=== PATIENT | female | born 1965 | race Caucasian/White ===

== ENCOUNTER 2019-05-01 15:47 | Inpatient (IN) ==
[2019-05-01] MEDS ORDERED: ZOFRAN IV PRN (17:34)
[2019-05-01] MEDS: LEVAQUIN 750 MG/D5W 750 MG/150 ML IVPB IV SCH (17:54)
[2019-05-01] MEDS: FLAGYL 500 MG/NS 500 MG/100 ML IVPB IV SCH (17:54)
[2019-05-01 18:02] LABS: HEMATOCRIT 46.2 % (37.0-47.0); HEMOGLOBIN 14.8 g/dL (12.0-16.0); MCH 30.5 PG (27-31); MCV 95.1 FL (81-99); MPV 10.4 FL (7.4-10.4); RBC 4.86 XMIL (4.2-5.4); RDW 13.9 % (11.5-14.5); WBC 15.82 X1000 (4.8-10.8)
[2019-05-01 18:14] LABS: ALB/GLOB RATIO 1.5; ALBUMIN 4.3 g/dL (3.5-5.0); POTASSIUM 4.4 mmol/L (3.5-5.1); TOTAL BILIRUBIN 0.36 mg/dL (0.20-1.00); TOTAL PROTEIN 7.1 g/dL (6.3-8.3)
[2019-05-01] MEDS: LR 1,000 ML IV SCH (18:35)
[2019-05-01] MEDS: MORPHINE IV PRN (23:53)
[2019-05-02] MEDS: FLAGYL 500 MG/NS 500 MG/100 ML IVPB IV SCH ×3 (01:31→17:19)
[2019-05-02] MEDS: LR 1,000 ML IV SCH ×2 (04:17→21:58)
[2019-05-02] MEDS: MORPHINE IV PRN ×2 (04:17→21:58)
[2019-05-02] MEDS ORDERED: NEOSTIGMINE ONE (10:24)
[2019-05-02] MEDS ORDERED: ZEMURON ONE (10:27)
[2019-05-02] MEDS ORDERED: QUELICIN (DOSE) ONE (10:27)
[2019-05-02] MEDS ORDERED: XYLOCAINE-MPF 2% ONE (10:27)
[2019-05-02] MEDS ORDERED: ROBINUL ONE (10:27)
[2019-05-02] MEDS ORDERED: FENTANYL ONE (10:28)
[2019-05-02] MEDS ORDERED: DIPRIVAN 1% ONE (10:28)
[2019-05-02] MEDS ORDERED: SODIUM CHLORIDE 0.9% ONE (11:14)
[2019-05-02] MEDS ORDERED: SENSORCAINE 0.25%/EPI 1:200,000 ONE (11:14)
[2019-05-02] MEDS ORDERED: LR 1,000 ML ONE (11:14)
[2019-05-02] MEDS ORDERED: DECADRON ONE (11:33)
[2019-05-02] MEDS ORDERED: ZOFRAN ONE (11:33)
[2019-05-02] MEDS ORDERED: SODIUM CHLORIDE 0.9% 10 ML ONE (12:22)
[2019-05-02] MEDS ORDERED: NEO-SYNEPHRINE ONE (12:22)
--- NOTE | 2019-05-02 12:27 | GENERAL SURGERY PROGRESS NOTE ---
DATE: 05/02/2019 SUBJECTIVE: The patient seems to be doing okay, although she is hurting a little bit. OBJECTIVE: Vital Signs: The patient is currently afebrile. Her vital signs are stable. General: No acute distress. HEENT: Normocephalic, atraumatic. Pupils equal, round, reactive to light. Mucous membranes moist. Oropharynx benign. Neck: Supple. Trachea midline. Cardiovascular: Regular rate and rhythm. Lungs: Grossly clear. Abdomen: Soft, tender to palpation. Epigastric and right upper quadrant pain. No peritoneal signs. Extremities: Moves all extremities. Neurologic: Grossly intact. Skin: No signs of jaundice. Vascular: All extremities perfused. LABORATORY DATA: White blood cell count is 15, hematocrit is normal, platelet count is normal. Bilirubin, AST, ALT, and alkaline phosphatase are all normal. Lipase is slightly elevated at 78. ASSESSMENT AND PLAN: A 53-year-old female with cholecystitis. Cholecystitis. At this time, will plan on surgical intervention. I discussed with her, the risks, benefits, and alternatives of the procedure. Risks including, but not limited to, bleeding, infection, risk of anesthesia, risk of common bile duct injury and bile leak, risk of injuring other organs were discussed. Will plan on surgical intervention today. Will get consent. She is on scheduled antibiotics. cc: Kameron Washington MD
[2019-05-02] MEDS ORDERED: TORADOL ONE (12:34)
[2019-05-02] MEDS ORDERED: PHENERGAN ONE (13:15)
[2019-05-02] MEDS ORDERED: DILAUDID ONE (13:15)
[2019-05-02] MEDS: LEVAQUIN 750 MG/D5W 750 MG/150 ML IVPB IV SCH (18:25)
--- NOTE | 2019-05-02 20:08 | OPERATIVE NOTE ---
PROCEDURE DATE: 05/02/2019 PREOPERATIVE DIAGNOSIS: Cholecystitis. POSTOPERATIVE DIAGNOSIS: Cholecystitis. PROCEDURE: Laparoscopic cholecystectomy. SURGEON: Kameron Washington MD. AUTOMATIC GLOVE FORMER: None. ANESTHESIA: General endotracheal. FINDINGS: Distended, large, thickened gallbladder, some purulence in the abdomen. COMPLICATIONS: None at time of dictation. ESTIMATED BLOOD LOSS: 50 mL. SPECIMENS REMOVED: Gallbladder. Drains: A 19-Swazi drain. BRIEF HISTORY: A 53-year-old female presenting with a several-day history of abdominal pain. She had an ultrasound that showed a distended gallbladder. It was felt to be cholecystitis. She was admitted from my office and started on IV antibiotics. We elected to take her to the operating room after 12 hours of antibiotics. The risks, benefits, alternatives of the procedure were discussed risks including but not limited to bleeding, infection, risk of anesthesia risk of common bile duct injury and bile leak, and risk of injury to other organs. All questions answered. DESCRIPTION OF PROCEDURE: After informed consent was obtained, the patient brought to the operative theatre, transferred operatively supine position. General endotracheal anesthesia was then performed without complication. A formal time-out was then performed confirming patient, date, procedure. All in agreement. At that time, attention was given to the abdomen. We were able to place our first trocar using the Optiview technique in the infraumbilical incision, connected it to insufflation and pneumoperitoneum was achieved. Under direct visualization, we placed 3 more trocars, all 5 mm, 1 subxiphoid, 2 in the right upper quadrant. Using these, the abdomen was investigated. There was some purulent fluid noted in the abdomen. The gallbladder itself was very distended and thickened. We had to aspirate some of the fluid to be able to get a hold of it. We were able to retract it cephalad. With a very tedious dissection able dissect out the cystic duct and cystic artery. We did see the common bile duct. We were able to stay above it and go through the cystic duct and achieve the critical view of safety. We doubly clipped and ligated the cystic duct and cystic artery and dissected the gallbladder off the gallbladder fossa. Given how inflamed and the purulence, we elected to leave a drain from most lateral trocar site. We placed the gallbladder into the EndoCatch, secured the drain in its place and into the gallbladder fossa. We then removed insufflation and removed all the trocars. We had to make the lower midline incision significantly larger to accommodate the large gallbladder. We were able to remove it intact. We irrigated out the abdomen. We then closed the fascia in the infraumbilical incision with 0 Vicryl in multiple stitches. There was decent closure. The fascia was very tenuous. We were able to close it. We closed all skin incisions with 4-0 Monocryl. The patient tolerated the procedure well and was transferred back to recovery room. We will watch her over night at least. cc: Kameron Washington MD
[2019-05-02] MEDS: PERIDEX MT SCH (21:58)
[2019-05-03] MEDS: FLAGYL 500 MG/NS 500 MG/100 ML IVPB IV SCH ×5 (00:52→17:15)
[2019-05-03] MEDS: MORPHINE IV PRN ×3 (08:45→21:20)
[2019-05-03] MEDS: PERIDEX MT SCH ×2 (08:48→21:21)
[2019-05-03] MEDS: LR 1,000 ML IV SCH ×2 (08:54→17:58)
--- NOTE | 2019-05-03 15:53 | GENERAL SURGERY PROGRESS NOTE ---
DATE: 05/03/2019 SUBJECTIVE: Patient seems to be doing okay. She is feeling a little bit better. She is sore. OBJECTIVE: Vital Signs: Patient is currently afebrile. Her vital signs are stable. General: No acute distress. Cardiovascular: Regular rate and rhythm. Lungs: Grossly clear. Abdomen: Soft and appropriately tender. EMANUEL drain in place with serosanguineous output. ASSESSMENT AND PLAN: A 53-year-old female postoperative day 1 from laparoscopic cholecystectomy. Postoperative state. At this time given the amount of contamination with purulent fluid that she had in her abdomen, I would like to keep her on IV antibiotics for another day at least. We will keep Carlo-Messer drain in place. Clinically, she is doing okay, and we will recheck a CBC in the morning. If she seems to be doing okay, may consider transition over to p.o. antibiotics and discharging her tomorrow. cc: Kameron Washington MD
[2019-05-03] MEDS: LEVAQUIN 750 MG/D5W 750 MG/150 ML IVPB IV SCH (17:14)
[2019-05-04] MEDS: FLAGYL 500 MG/NS 500 MG/100 ML IVPB IV SCH ×2 (01:54→09:15)
[2019-05-04] MEDS: MORPHINE IV PRN ×3 (01:56→09:22)
[2019-05-04 07:17] LABS: BASO# 0.02 X1000 (0.0-0.2); BASO% 0.3 % (0.0-0.8); EOS# 0.02 X1000 (0.0-0.7); EOS% 0.3 % (0.0-10.0); HEMATOCRIT 32.3 % (37.0-47.0); LYMPH# 1.98 X1000 (1.2-3.4); LYMPH% 27.7 % (20.5-51.1); MCH 30.8 PG (27-31); MCV 99.4 FL (81-99); MONO# 0.38 X1000 (0.11-0.59); MONO% 5.3 % (1.7-9.3); MPV 10.4 FL (7.4-10.4); NEUT# 4.76 X1000 (1.4-6.5); NEUT% 66.4 % (42.2-75.2); PLT 171 X1000 (130-400); RBC 3.25 XMIL (4.2-5.4); RDW 14.3 % (11.5-14.5); WBC 7.16 X1000 (4.8-10.8)
[2019-05-04] MEDS: PERIDEX MT SCH (09:15)
[2019-05-04 11:49] VITALS: BP 99/61
[2019-05-04] MEDS ORDERED: FLU VACCINE IM ONE (13:15)
[2019-05-04] MEDS ORDERED: PNEUMOVAX 23 IM ONE (13:16)
--- NOTE | 2019-05-05 03:51 | GENERAL SURGERY PROGRESS NOTE ---
DATE: 05/04/2019 SUBJECTIVE: The patient is doing well. She denies significant pain, nausea, or vomiting. OBJECTIVE: Vital signs: She is afebrile. Vital signs are stable. General: She is awake, alert, oriented x3. No acute distress. Gastrointestinal: Soft, nondistended, appropriately tender. Incisional dressings clean and dry. The EMANUEL drain is bloody. No bile. LABORATORY: CBC was reviewed and unremarkable. ASSESSMENT AND PLAN: A 53-year-old female status post laparoscopic cholecystectomy. She is ready for discharge with her drain and antibiotics per Dr. Washington's instructions. She will follow up with him next week. cc: MD Kameron Murphy MD
--- NOTE | 2019-05-07 18:23 | DISCHARGE SUMMARY ---
ADMISSION DATE: 05/01/2019 DISCHARGE DATE: 05/04/2019 ADMITTING DIAGNOSIS: Cholecystitis. DISCHARGE DIAGNOSIS: Status post laparoscopic cholecystectomy. CONSULTATIONS: None. PROCEDURE: On 05/02/2019, patient underwent a laparoscopic cholecystectomy. BRIEF HISTORY AND COURSE OF STAY: A 53-year-old female who was initially admitted on 05/01/2019, from my office for cholecystitis. She was admitted and started on IV antibiotics, given at least 24 hours of antibiotics, and underwent a laparoscopic cholecystectomy. Her postoperative course was not complicated. We did keep her another night because she had purulent fluid in her abdomen and she had a difficult cholecystectomy, wanted to keep her on additional antibiotics. On the day of discharge, she was up and ambulating, tolerating a diet. Arrangements were made. She was afebrile. DISCHARGE CONDITION: Stable. DISPOSITION: Home. FOLLOWUP: Patient was told to follow up with Dr. Washington in 1 week. cc: Kameron Washington MD
== END 2019-05-04 13:35 | disposition home or self-care (01) | DRG 419 ==
LOC: DIRADM 15:47 → 4N 16:15
PROVIDERS: ADMIT Surgery; ATTEND Surgery

== ENCOUNTER 2019-06-30 12:48 | Inpatient (IN) ==
[2019-06-30] MEDS ORDERED: NS 1,000 ML IV ONE (13:10)
[2019-06-30] MEDS ORDERED: ZOFRAN IV ONE ×2 (13:11→13:29)
[2019-06-30] MEDS ORDERED: DILAUDID IV ONE (13:29)
[2019-06-30 15:30] LABS: BASO# 0.01 X1000 (0.0-0.2); BASO% 0.1 % (0.0-0.8); HEMATOCRIT 50.9 % (37.0-47.0); HEMOGLOBIN 16.3 g/dL (12.0-16.0); IMM GRAN# 0.04 X1000 (0.0-0.04); IMM GRAN% 0.2 % (0.0-0.5); LYMPH# 0.72 X1000 (1.2-3.4); LYMPH% 4.1 % (20.5-51.1); MCH 30.1 PG (27-31); MCV 94.1 FL (81-99); MONO# 0.68 X1000 (0.11-0.59); MONO% 3.8 % (1.7-9.3); MPV 10.4 FL (7.4-10.4); NEUT# 16.24 X1000 (1.4-6.5); NEUT% 91.8 % (42.2-75.2); PLT 246 X1000 (130-400); RBC 5.41 XMIL (4.2-5.4); RDW 14.1 % (11.5-14.5); WBC 17.69 X1000 (4.8-10.8)
[2019-06-30 15:49] LABS: ESTIMATED GFR > 60
[2019-06-30 15:52] LABS: AGAP 13; ALB/GLOB RATIO 1.2; ALBUMIN 4.2 g/dL (3.5-5.0); ALKALINE PHOSPHATASE 108 U/L (32-104); AMYLASE 1479 U/L (20-200); BUN 19 mg/dL (8-22); CALCIUM 9.7 mg/dL (8.8-10.2); CHLORIDE 98 mmol/L (98-107); COSMO 277; CREATININE 0.8 mg/dL (0.5-0.9); GLUCOSE 107 mg/dL (70-104); GOT 15 U/L (10-30); GPT 12 U/L (10-36); SODIUM 137 mmol/L (136-145); TCO2 26 mmol/L (25-35); TOTAL BILIRUBIN 0.65 mg/dL (0.20-1.00); TOTAL PROTEIN 7.8 g/dL (6.3-8.3)
[2019-06-30 15:57] LABS: LIPASE 1239 U/L (13-60)
--- NOTE | 2019-06-30 16:41 | Diag Imaging Result Doc PS360 ---
EXAM: CT ABD/PELVIS W/IV CONT ONLY 06/30/2019 HISTORY: diffuse pain, hx pancreatitis s/p patricia'x TECHNIQUE: This exam was performed using automated exposure control, adjustment of mA or kV according to patient size, and/or use of iterative reconstruction technique. COMMENT: There are no previous studies. There is platelike atelectasis versus fibrosis in the left lower lobe. The aorta is not distended. The mesenteric and renal arteries are patent. There are some atherosclerotic calcifications. There has been previous cholecystectomy. The common bile duct is markedly distended measuring over 17 mm proximally. In the pancreatic head it measures almost 10 mm. There is marked inflammatory change around the body and head of the pancreas. There are numerous punctate calcifications in the pancreas consistent with chronic pancreatitis. There is no evidence of abscess or necrosis. The adrenal glands and spleen are not enlarged. The portal vein is patent. There is some slight intrahepatic biliary dilatation. Otherwise the liver is unremarkable. There is some fullness of the left renal collecting system and there are some cortical scars consistent with chronic pyelonephritis. There is no evidence of ureterolithiasis. There is some gas in the urinary bladder. This may be due to previous instrumentation. There is no evidence of bowel obstruction. No significant adenopathy is present. Pelvis: There is diverticulosis in the sigmoid colon without evidence of active diverticulitis. There is free fluid in the cul-de-sac. There our no adnexal masses. The appendix is normal in appearance. The regional skeleton appears to be intact. IMPRESSION: 1. Acute on chronic pancreatitis. Dilatation the common bile duct of uncertain etiology. The possibility of a distal common bile duct stone or recently passed stone cannot be excluded. Ascites. 2. Changes consistent with chronic pyelonephritis on the left. The possibility of active urinary tract infection cannot be excluded. Electronically signed by Bryant Edwards 06/30/2019 4:39 PM
--- NOTE | 2019-06-30 16:49 | Diag Imaging Result Doc PS360 ---
EXAM: CHEST-1 VIEW 06/30/2019 HISTORY: sepsis TECHNIQUE: AP chest COMMENT: There is a linear opacity paralleling the chest wall laterally on the left which is probably related to fibrosis although no previous studies are available for comparison. There is an old fracture of the lateral left sixth rib. The heart size and pulmonary vascularity are within normal limits. IMPRESSION: Atelectasis versus fibrosis in the left lower lobe laterally. Electronically signed by Bryant Edwards 06/30/2019 4:47 PM
[2019-06-30 16:57] LABS: AGAP 13; ALB/GLOB RATIO 1.5; ALBUMIN 4.4 g/dL (3.5-5.0); ALKALINE PHOSPHATASE 110 U/L (32-104); BUN 19 mg/dL (8-22); CALCIUM 9.6 mg/dL (8.8-10.2); CHLORIDE 99 mmol/L (98-107); CK PROFILE 70 U/L (24-173); COSMO 278; CREATININE 0.8 mg/dL (0.5-0.9); ESTIMATED GFR > 60; GLUCOSE 108 mg/dL (70-104); GOT 13 U/L (10-30); GPT 10 U/L (10-36); SODIUM 138 mmol/L (136-145); TCO2 26 mmol/L (25-35); TOTAL BILIRUBIN 0.64 mg/dL (0.20-1.00); TOTAL PROTEIN 7.3 g/dL (6.3-8.3)
[2019-06-30 17:12] LABS: URINE SOURCE CLEAN CATCH
[2019-06-30 17:20] LABS: BILIRUBIN URINE NEGATIVE (NEGATIVE); BLOOD URINE SMALL (NEGATIVE); COLOR YELLOW; GLUCOSE URINE 100 mg/dL (NEGATIVE); KETONE URINE TRACE mg/dL (NEGATIVE); LEUKOCYTES URINE LARGE (NEGATIVE); NITRITE URINE NEGATIVE (NEGATIVE); PH URINE 6.5; PROTEIN URINE 70 mg/dL (NEGATIVE); TURBIDITY URINE HAZY (CLEAR); UROBILINOGEN URINE NORMAL (NORMAL)
[2019-06-30 17:22] LABS: UR EPITHELIAL CELLS <10 /HPF (<10); URINE BACTERIA 4+ /HPF; URINE RBC <10 /HPF (<10); URINE WBC TNTC /HPF (<10)
[2019-06-30] MEDS ORDERED: ZOFRAN IV PRN (17:41)
[2019-06-30 17:44] LABS: SP GRAVITY URINE 1.015
[2019-06-30] MEDS ORDERED: LR 1,000 ML IV ONE (17:46)
--- NOTE | 2019-06-30 18:04 | PROVIDER DOCUMENTATION ---
This chart was entered by Vickie Baldwin Scribe, acting as scribe for Castillo Valente MD. HPI-Abdominal Pain/GI Problem - General Chief Complaint: Abdominal Pain Stated Complaint: ABDOMINAL PAIN Time Seen by Provider: 06/30/19 13:25 Source: patient Allergies/Adverse Reactions: Patient Allergies Allergy/AdvReac Type Severity Reaction Status Date / Time Penicillins Allergy Intermediate SWELLING Verified 06/30/19 17:39 - History of Present Illness-ABD Nature of Presenting Problems: 53 y/o female presents to the ED with complaint of abdominal pain and vomiting since last night. The patient denies change in bowel movement and hematochezia. Records show h/o cholecystectomy in April 2019 with pancreatitis at that time. Abdominal Pain Onset Location: reports: epigastric Onset/Duration: reports: last night Timing: reports: still present Associated Symptoms: reports: vomiting Dark Stools Present?: reports: none noticed Rectal Bleeding: reports: none Rectal Pain: reports: none Emesis Description: denies: red blood, coffee grounds, blood-streaked Recently seen or treated by another doctor?: No Review of Systems - Adult - REVIEW OF SYSTEMS - ADULT Constitutional: denies: chills, fever, weight gain, weight loss Eyes: reports: no symptoms reported Ears, Nose, Mouth & Throat: reports: no symptoms reported Cardiovascular: reports: no symptoms reported Respiratory: reports: no symptoms reported Gastrointestinal: reports: abdominal pain (epigastric), vomiting. denies: constipation, diarrhea Genitourinary: denies: dysuria, hematuria, urgency Musculoskeletal: reports: no symptoms reported Integumentary: reports: no symptoms reported Neurological: reports: no symptoms reported Psychiatric: reports: no symptoms reported Endocrine: reports: no symptoms reported Hematologic/Lymphatic: reports: no symptoms reported Allergic/Immunologic: reports: no symptoms reported All Other Systems: Reviewed and Negative Past History - Adult - PAST MEDICAL HISTORY-ADULT Review of Records: reports: Old Records Reviewed, Nursing Assessment Review, Medications Reviewed - IMMUNIZATION STATUS Childhood Immunizations: See Nurse Assessment Flu Vaccine: See Nurse Assessment - SOCIAL HISTORY Smoking: cigarettes Provider spent 3-5 mins advising pt. on dangers of tobacco.: Discussed manners to quit use, and f/u contacts for add'l counseling. Physical Exam-General - PHYSICAL EXAM-ADULT Initial Vital Signs Reviewed: Yes - CONSTITUTIONAL General Appearance: alert, moderate distress - RESPIRATORY Respiratory: lungs clear, normal breath sounds. negative: rales, rhonchi, wheezing - CARDIOVASCULAR Cardiovascular: regular rate, rhythm, no gallop, no murmur - GASTROINTESTINAL (ABDOMEN) Abdominal Exam: normal bowel sounds, guarding, tenderness (RUQ and LUQ). negative: rigid - SKIN Integumentary: normal color, warm/dry - NEUROLOGIC Neurologic: grossly normal Progress - PLAN OF CARE/RESULTS Progress/Plan/Lab Results: Vital Signs - 8 hr 06/30/19 12:51 Temperature 98.4 F Pulse Rate 120 H Respiratory Rate 18 Blood Pressure 144/96 O2 Sat by Pulse Oximetry 98 Orders Category Date Time Status Saline Loc DIRECTED Care 06/30/19 12:58 Active NPO Diet 06/30/19 12:58 Active AMYLASE [CHEM] Stat Lab 06/30/19 12:58 Uncollected CBC WITH ELECTRONIC DIFF [HEME] Stat Lab 06/30/19 12:58 Uncollected COMPREHENSIVE METABOLIC PANEL [CHEM] Stat Lab 06/30/19 12:58 Uncollected LIPASE [CHEM] Stat Lab 06/30/19 12:58 Uncollected URINALYSIS W/POSS RFLX CULT [URINALYSIS] Stat Lab 06/30/19 12:58 Uncollected 0.9% Sodium Chloride Inj [Ns] 1,000 ml Med 06/30/19 13:10 Active IV 999 mls/hr Ondansetron [Zofran] Med 06/30/19 13:11 Discontinued 4 mg IV NOW ONE Result Diagrams: 06/30/19 15:10 06/30/19 15:10 - CT/MRI 1 CT Study: Abdomen, Pelvis Impression: Abnormal (EXAM: CT ABD/PELVIS W/IV CONT ONLY 06/30/2019 HISTORY: diffuse pain, hx pancreatitis s/p patricia'x TECHNIQUE: This exam was performed using automated exposure control, adjustment of mA or kV according to patient size, and/or use of iterative reconstruction technique. COMMENT: There are no previous studies. There is platelike atelectasis versus fibrosis in the left lower lobe. The aorta is not distended. The mesenteric and renal arteries are patent. There are some atherosclerotic calcifications. There has been previous cholecystectomy. The common bile duct is markedly distended measuring over 17 mm proximally. In the pancreatic head it measures almost 10 mm. There is marked inflammatory change around the body and head of the pancreas. There are numerous punctate calcifications in the pancreas consistent with chronic pancreatitis. There is no evidence of abscess or necrosis. The adrenal glands and spleen are not enlarged. The portal vein is patent. There is some slight intrahepatic biliary dilatation. Otherwise the liver is unremarkable. There is some fullness of the left renal collecting system and there are some cortical scars consistent with chronic pyelonephritis. There is no evidence of ureterolithiasis. There is some gas in the urinary bladder. This may be due to previous instrumentation. There is no evidence of bowel obstruction. No significant adenopathy is present. Pelvis: There is diverticulosis in the sigmoid colon without evidence of active diverticulitis. There is free fluid in the cul-de-sac. There our no adnexal masses. The appendix is normal in appearance. The regional skeleton appears to be intact. IMPRESSION: 1. Acute on chronic pancreatitis. Dilatation the common bile duct of uncertain etiology. The possibility of a distal common bile duct stone or recently passed stone cannot be excluded. Ascites. 2. Changes consistent with chronic pyelonephritis on the left. The possibility of active urinary tract infection cannot be excluded. Electronically signed by Bryant Edwards 06/30/2019 4:39 PM) - CONSULTS/PCP/HOSPITALIST Notification #1 *Consult/PCP/Hospitalist*: Dr. Gomes Time Discussed: 17:16 Reason/Comments: common bile duct dilatation, pancreatitis, Consult Disposition: other (admit through hospitalist, no stat surgery required at this time.) #2 Consult: Juancarlos Nolasco Time Discussed: 17:20 Reason/Comments: common bile duct dilatation, pancreatitis, UTI Consult Disposition: Admit Departure - Departure Date of Disposition Decision: 06/30/19 Time of Disposition Decision: 17:21 DIAGNOSIS: Acute pancreatitis Disposition: ADMITTED INPATIENT 09 Certified Medical Emergency: Emergent Condition: Stable Additional Instructions: ED Follow Up Instructions: You have been treated by a care provider in the Emergency Department. These instructions are being provided to you so you can have an understanding of how to care for yourself upon discharge. Upon discharge from the Emergency De partment, you are responsible for making arrangements for follow-up care by a physician of your choice. Take all prescribed medications as directed. Return to the Emergency Department immediately for any new or worsening symptoms. You may call the Physician Referral phone number at [phone] to obtain a list of Physicians who are taking new patients. Referrals and Follow-Ups: None,PCP [Primary Care Provider] - - Critical Care Note This patient required my direct & personal management of CC.: No Attestation - Physician/ MATHIEU Attestation Patient care was provided by Advanced Practice Provider:: No The physician spent face to face time with patient:: Yes Advanced Practice Provider documentation review:: Supervising physician onsite and consulted in the evaluation and care of this patient. The physician did have a face to face encounter with the patient. This chart was documented by the indicated scribe, (Vickie Baldwin, David) and accurately reflects the services I performed and decisions made by me, Castillo Valente MD, as attested by the provider's signature.
[2019-06-30] MEDS: PROTONIX IV SCH (18:50)
[2019-06-30] MEDS: MERREM 1 GM in NS 50 ML IV SCH (18:50)
[2019-06-30] MEDS: SODIUM CHLORIDE 0.9% INJ SCH (18:50)
[2019-06-30] MEDS: NS 1,000 ML IV SCH (18:51)
[2019-06-30] MEDS: MORPHINE IV PRN (19:42)
[2019-07-01] MEDS: MERREM 1 GM in NS 50 ML IV SCH ×3 (02:38→17:45)
[2019-07-01] MEDS: MORPHINE IV PRN ×5 (02:38→21:50)
[2019-07-01] MEDS: NS 1,000 ML IV SCH ×3 (02:38→17:37)
--- NOTE | 2019-07-01 05:03 | HISTORY AND PHYSICAL ---
CHIEF COMPLAINT: Abdominal pain, nausea and vomiting. HISTORY OF PRESENT ILLNESS: A 53-year-old female with a past medical history of alcohol abuse in the past, but she stopped drinking 10 years ago. Now, occasionally, she drinks every month and just 1 drink like margaritas. She denied any other medical history. Recently, she had a cholecystectomy done in this hospital on 05/02/2019. It looks like the postoperative course was not complicated, but she had a purulent fluid in her abdomen, and she had a difficult cholecystectomy. She was discharged without any problems. As per the patient for the past 2 days, she has been having abdominal pain in the epigastric area radiating to the back, band like associated with nausea, vomiting, and weakness. As per the patient, the last time she had a drink was 2 months ago. She was examined in the emergency department. CT scan of the abdomen was performed, and showed an acute on chronic pancreatitis, dilatation of the common bile duct of uncertain etiology, the possibility of a distal common bile duct stone or recent passed stone cannot be excluded. She has also some ascites. She has also changes consistent with chronic pyelonephritis on the left. The possibility of urinary tract infection cannot be excluded. This patient's white blood cell count was elevated at 17.6. She seems to be clinically dehydrated, amylase 1479, and lipase 1239. I do not have the report of the urinalysis, but she is not complaining of symptoms. The patient will be admitted to the medical floor. Gastroenterology Department will be consulted. I will put this patient NPO. She will have aggressive IV fluid resuscitation, and pain as needed. She denies diarrhea, melena, hematemesis. No headache. No chest pain. No shortness of breath. No fever. No chills, but she has been having nausea and vomiting. REVIEW OF SYSTEMS: All 14 points of review of systems were reviewed. All of them negative except as per HPI. PAST MEDICAL HISTORY: Alcohol abuse in the past, she stopped drinking 10 years ago. She used to drink for 5 years maybe a 6 pack a day. She is still smoking. SOCIAL HISTORY: She is a smoker. She has been smoking around half a pack for the past 30 years. She used to drink alcohol on a daily basis, but she stopped 10 years ago. She was drinking beers every day at least a six-pack. No drugs. She works in a [employer]. FAMILY HISTORY: Father with diabetes, hypertension, and lymphoma. SURGICAL HISTORY: She had a laparoscopic cholecystectomy done in this hospital on 05/02/[address] Washington. Apparently, she had some purulent material on her abdomen after the surgery, and she stayed in the hospital an extra day or so to receive more antibiotics. ALLERGIES: Penicillin. Apparently, her lips and tongue are swollen after treatment. PHYSICAL EXAMINATION: VITAL SIGNS: Temperature 98.4 degrees, pulse 120, respiratory rate 18, blood pressure 144/96, and oxygen saturation 98 percent on room air. HEENT: Head normocephalic. No trauma. PERRLA. NECK: Supple. No JVD. No masses. Central trachea. CHEST: Clear to auscultation. No wheezing. No rales. ABDOMEN: Soft. Tenderness to palpation at the level of the epigastric area, and a little bit on the right upper quadrant. No signs of peritoneal irritation. EXTREMITIES: No edema, clubbing, or cyanosis. NEUROLOGICAL: The patient is awake and alert. She is oriented x3. No focal deficits. LABORATORY: WBC 17.6, hemoglobin 16.3, hematocrit 50.9, and platelets 246,000. Sodium 138, potassium 4, chloride 99, bicarbonate 26, BUN 19, creatinine 0.8, glucose 108, calcium 9.6, AST 13, ALT 10, alkaline phosphatase 110, amylase 1479, and lipase 1239. Urinalysis pending. ASSESSMENT AND PLAN: 1. Acute pancreatitis, probably acute on chronic. The patient denies any history of pancreatitis. We have a CT report that showed acute on chronic pancreatitis, dilatation of the common bile duct of uncertain etiology. The possibility of distal common bile duct stone or recent passed stone cannot be excluded. She also had some changes consistent with chronic pyelonephritis on the left, and the possibility of active urinary tract infection cannot be excluded, but this patient is not complaining of symptoms for this. She will be placed on aggressive IV fluids. She will be placed on antibiotics since the white blood cell count is elevated at 17. Also, I will keep this patient NPO for now, I will ask Gastroenterology Department to evaluate this patient. Probably, she will need to have a procedure done, but I will let that decision to them. 2. Tobacco abuse. This patient has been highly advised against tobacco use. I will continue with daily cessation education. I offered her a nicotine patch, but she denied that. 3. History of alcohol abuse. Apparently, she stopped drinking 10 years ago. She now and then is drinking just 1 or 2 drinks. The last time that she drank was 2 months ago or so. cc: Rico Delcid MD
[2019-07-01 08:05] LABS: BASO# 0.01 X1000 (0.0-0.2); BASO% 0.1 % (0.0-0.8); EOS# 0.01 X1000 (0.0-0.7); EOS% 0.1 % (0.0-10.0); HEMATOCRIT 42.1 % (37.0-47.0); HEMOGLOBIN 13.3 g/dL (12.0-16.0); IMM GRAN# 0.03 X1000 (0.0-0.04); IMM GRAN% 0.2 % (0.0-0.5); LYMPH# 1.09 X1000 (1.2-3.4); LYMPH% 7.9 % (20.5-51.1); MCH 30.6 PG (27-31); MCHC 31.6 g/dL (33-37); MCV 96.8 FL (81-99); MONO# 0.42 X1000 (0.11-0.59); MONO% 3.1 % (1.7-9.3); MPV 10.9 FL (7.4-10.4); NEUT# 12.21 X1000 (1.4-6.5); NEUT% 88.6 % (42.2-75.2); PLT 201 X1000 (130-400); RBC 4.35 XMIL (4.2-5.4); RDW 14.3 % (11.5-14.5); WBC 13.77 X1000 (4.8-10.8)
[2019-07-01 08:23] LABS: BANDS 2 % (0-1); EOS 6 % (1-10); HYPOCHROM 1+; LYMPHS 24 % (21-51); MONO 8 % (1-9); SEGS 60 % (42-75)
[2019-07-01 08:25] LABS: AGAP 11; ALB/GLOB RATIO 1.3; ALBUMIN 3.4 g/dL (3.5-5.0); ALKALINE PHOSPHATASE 88 U/L (32-104); BUN 14 mg/dL (8-22); CALCIUM 8.4 mg/dL (8.8-10.2); CHLORIDE 105 mmol/L (98-107); COSMO 278; CREATININE 0.6 mg/dL (0.5-0.9); ESTIMATED GFR > 60; GLUCOSE 101 mg/dL (70-104); GOT 11 U/L (10-30); GPT 7 U/L (10-36); MAGNESIUM 1.6 mg/dL (1.5-2.7); POTASSIUM 3.7 mmol/L (3.5-5.1); SODIUM 139 mmol/L (136-145); TCO2 23 mmol/L (25-35); TOTAL BILIRUBIN 0.52 mg/dL (0.20-1.00)
--- NOTE | 2019-07-01 11:16 | PROGRESS NOTE ---
DATE: 07/01/2019 SUBJECTIVE: The patient is still complaining of abdominal pain, but compared with yesterday it looks like it is a little bit better. White blood cell count is trending down, but she was dehydrated also. LFTs are normal today. Yesterday her alkaline phosphatase was slightly elevated. Gastroenterology Department has evaluated this patient. They asked for a MRCP. I will wait for the results, and I will continue with antibiotics and follow with recommendations. OBJECTIVE: Vital Signs: Temperature 98.6 degrees, pulse 97, respiratory rate 20, blood pressure 135/83, oxygen saturation 94% on room air. HEENT: Head normocephalic, no trauma. PERRLA. Neck: Supple. No JVD. No masses. Central trachea. Chest: Clear to auscultation. No wheezing. No rales. Abdomen: Soft. Tenderness to palpation at the level of the epigastric area, and a little bit at the level of the right upper quadrant. No signs of peritoneal irritation. Positive bowel sounds, but decreased. Extremities: No edema, no clubbing, no cyanosis. Neurological examination: Patient is awake, alert. She is oriented x3. No focal deficits. LABORATORY: WBC 13.7, hemoglobin 13.3, hematocrit 42.1, platelets 201. Sodium 139, potassium 3.7, chloride 105, bicarbonate 23. BUN 14, creatinine 0.6, glucose 101, calcium 8.4. AST 11, ALT 7, alkaline phosphatase 88 and albumin 3.4. ASSESSMENT AND PLAN: 1. Acute pancreatitis. The patient denies any history of pancreatitis before, but computed tomography scan report showed acute on chronic pancreatitis, and also dilatation of the common bile duct of uncertain etiology. Probably she has a stone or she recently passed a stone. Gastroenterology Department already evaluated this patient and she will have magnetic resonance cholangiopancreatography done today. I will continue with aggressive intravenous fluids, pain medication, nothing by mouth. 2. Dehydration, resolved. 3. Tobacco abuse. This patient has been highly advised against tobacco use. I will continue with daily cessation education. 4. History of alcohol abuse. Apparently she stopped drinking 10 years ago, and she drinks now and then just 1 drink or 2. The last time she drank was about 2 months ago. 5. Asymptomatic bacteriuria. She has been placed on antibiotics due to the pancreatitis and leukocytosis, I will continue with same management. Urine culture showed gram-negative rods, and on the CT scan they suggested chronic pyelonephritis on the left. cc: Rico Delcid MD
--- NOTE | 2019-07-01 13:41 | Diag Imaging Result Doc PS360 ---
MRI MRCP (ABD W/O CONTRAST) - 07/01/2019 INDICATION: Pancreatitis dilated CBD recent GB removal TECHNIQUE: COMPARISON: CT from 06/30/2019 FINDINGS: There are cholecystectomy changes. There is diffuse dilation of the common bile duct. This measures about 16 mm proximally, and tapers throughout the pancreatic head. No obvious filling defects to suggest an obstructing stone however. There is severe diffuse edema around the pancreas compatible with acute on chronic pancreatitis. No drainable fluid collections. The main pancreatic duct appears unremarkable. Spleen size is top normal. There is mild hydronephrosis of the left kidney. The right kidney appears normal. IMPRESSION: 1. Severe acute on chronic pancreatitis. 2. Severely dilated common bile duct. The reason is unclear. Main pancreatic duct is normal. 3. Mild left hydronephrosis, etiology uncertain. This may be reactive from the pancreatitis. Electronically signed by Isaiah Villegas 07/01/2019 1:39 PM
--- NOTE | 2019-07-01 16:07 | GASTROENTEROLOGY CONSULTATION ---
DATE: 07/01/2019 REASON FOR CONSULT: Pancreatitis. HISTORY OF PRESENT ILLNESS: Ms. Trinidad is a 53-year-old female who came in last night with complaints of abdominal pain, rating it is 8/10 and describing her pain as cramping pain. Patient recently had a laparoscopic cholecystectomy done by Dr. Washington on 05/02/2019. The patient has a history of alcohol abuse in the past, but she has mentioned that she has stopped drinking now. She occasionally drinks margaritas. She has denied any other medical conditions. The patient's abdomen and pelvis CT on admission has shown no acute on chronic pancreatitis. Dilation of the common bile duct is uncertain but there is a possibility of a distal common bile duct stone or recently passed stone that cannot be excluded. Ascites and changes are consistent with chronic pyelonephritis on the left, possibility of urinary tract infection. Her chest x-ray on admission showed atelectasis versus fibrosis in the left lower lobe laterally. PAST MEDICAL HISTORY: Alcohol abuse and current smoker. PAST SURGICAL HISTORY: Cholecystectomy. ALLERGIES: Penicillin. FAMILY HISTORY: Significant for diabetes, hypertension, lipoma. SOCIAL HISTORY: She is a smoker. She drinks alcohol on a daily basis. She currently works at a [employer]. REVIEW OF SYSTEMS: As per HPI. Otherwise, 12 point review of system is negative. PHYSICAL EXAMINATION: Vital Signs: Temperature 97.9 degrees, pulse 119, respirations 21, blood pressure 134/82, oxygen saturation 94% on room air. Her weight is 130 pounds. BMI is 24.0 kg/m2. General: She is alert and oriented x3, in no acute distress. HEENT: Pale conjunctivae. No icterus. PERRL. Neck: Supple. Lungs: Clear to auscultation. Cardiovascular: Patient is tachycardic. Abdomen: Soft, tender. Active bowel sounds heard in all 4 quadrants. Extremities: No clubbing. No cyanosis. No edema. Pedal pulses 2+, present bilaterally. Neurologic: She is alert, oriented x3. Nonfocal. Cranial nerves 2-12 grossly intact. LABS: WBCs of 13.77, RBCs 4.35, hemoglobin 13.3, hematocrit is 42.1, platelet count is 201,000. Sodium 139, potassium 3.7, chloride 105, carbon dioxide 23, anion gap 11, BUN 14, creatinine 0.6, glucose 101, calcium 8.4, magnesium 1.6, total bilirubin 0.52, AST 11, ALT 7, alkaline phosphatase 88, albumin 3.4. Urinalysis has shown protein of 70, glucose 100, trace of ketones, small amount of blood, large amount of leukocytes. IMAGING: MRCP has shown severe acute on chronic pancreatitis, severely dilated common bile duct, reason is unclear. Main pancreatic duct is normal. Mild left hydronephrosis, etiology uncertain, but may be reactive from the pancreatitis. IMPRESSION AND PLAN: 1. Abdominal pain. 2. Nausea and vomiting. 3. Pancreatitis likely acute on chronic pancreatitis likely alcohol related 4. Status post gallbladder removal. 5. Dilated CBD 6. UTI and Leukocytosis 7. H/o Alcoholism 8. Tobacco abuse. PLAN: Ms. Trinidad is a 53-year-old female who presented with a recent history of cholecystectomy. GI has been consulted for her pancreatitis. MRCP has shown that she has severe acute on chronic pancreatitis, severely dilated common bile duct. Main pancreatic duct is normal. Mild left hydronephrosis. The patient is currently on IV fluids normal saline at 200 mL/h. She is on PPI daily. Patient was counselled to quit alcohol completely. Counseled about tobacco cessation as well. She is also receiving antibiotics, Merrem 800 mL per hour. For her nausea she is on Zofran. We will continue to provide supportive care to the patient. This plan was discussed with Dr. Marshall. Please call us with any further questions or concerns. Dictated by YADIRA Chow for Tunde Marshall MD cc: Tunde Marshall MD I have seen and examined the patient myself and I agree with the above plan of care. Please call us with any questions or concerns. [facility]
[2019-07-01] MEDS: SODIUM CHLORIDE 0.9% INJ SCH (17:46)
[2019-07-01] MEDS: PROTONIX IV SCH (17:46)
[2019-07-02] MEDS: NS 1,000 ML IV SCH ×6 (00:55→18:21)
[2019-07-02] MEDS: MORPHINE IV PRN (02:42)
[2019-07-02] MEDS: MERREM 1 GM in NS 50 ML IV SCH ×4 (02:42→18:19)
[2019-07-02 06:52] LABS: BASO# 0.02 X1000 (0.0-0.2); BASO% 0.2 % (0.0-0.8); EOS# 0.13 X1000 (0.0-0.7); EOS% 1.2 % (0.0-10.0); HEMATOCRIT 36.2 % (37.0-47.0); HEMOGLOBIN 11.4 g/dL (12.0-16.0); IMM GRAN# 0.02 X1000 (0.0-0.04); IMM GRAN% 0.2 % (0.0-0.5); LYMPH% 11.2 % (20.5-51.1); MCH 30.5 PG (27-31); MCHC 31.5 g/dL (33-37); MCV 96.8 FL (81-99); MONO# 0.34 X1000 (0.11-0.59); MONO% 3.2 % (1.7-9.3); MPV 10.5 FL (7.4-10.4); NEUT# 9.04 X1000 (1.4-6.5); PLT 167 X1000 (130-400); RBC 3.74 XMIL (4.2-5.4); RDW 13.9 % (11.5-14.5); WBC 10.75 X1000 (4.8-10.8)
[2019-07-02 07:36] LABS: AGAP 10; ALBUMIN 2.7 g/dL (3.5-5.0); ALKALINE PHOSPHATASE 80 U/L (32-104); AMYLASE 151 U/L (20-200); BUN 9 mg/dL (8-22); CALCIUM 8.3 mg/dL (8.8-10.2); CHLORIDE 107 mmol/L (98-107); COSMO 274; CREATININE 0.6 mg/dL (0.5-0.9); ESTIMATED GFR > 60; GLUCOSE 67 mg/dL (70-104); GOT 8 U/L (10-30); GPT 6 U/L (10-36); LIPASE 36 U/L (13-60); POTASSIUM 3.3 mmol/L (3.5-5.1); SODIUM 139 mmol/L (136-145); TCO2 22 mmol/L (25-35); TOTAL PROTEIN 5.5 g/dL (6.3-8.3)
--- NOTE | 2019-07-02 08:02 | PROGRESS NOTE ---
DATE: 07/02/2019 SUBJECTIVE: Ms. Trinidad was admitted on 06/30/2019 with abdominal pain, nausea and vomiting. A 53- year-old female with past medical history of alcohol abuse in the past. Stopped drinking 10 years ago. Now on occasion, she drinks 1 drink or so a month. Denied any other medical history recently. She has had a cholecystectomy done in this hospital on 05/02/2019. It looks like her postoperative course was not complicated. She had purulent fluid in her abdomen. She had a difficult cholecystectomy, discharged without any problems. As per patient, 2 days before was having abdominal pain, epigastric pain radiating to the back, bandlike, associated nausea, vomiting, weakness. Last time she had a drink was [address] of the abdomen was performed, showed acute on chronic pancreatitis, dilatation of the common bile duct of uncertain etiology, possible distal common bile duct stone. A recent passed stone could not be excluded. She has some ascites consistent. There was some chronic pyelonephritis on the left, possibility of urinary tract infection could not be excluded. White [place] count [place] [address]. Clinically she was dehydrated. Amylase was 1479, lipase 1239. She was put on fluids, admitted. States she is feeling better. Her stomach is feeling better. OBJECTIVE: Vital signs: She remains afebrile, temperature 98.6 degrees, pulse 88, respirations 16, blood pressure 121/74. HEENT: Pupils are equal and round. Lungs: Clear in all lung jung. Cardiovascular: Regular rhythm and rate without murmur or S3. Urine output: 1900 mL. ASSESSMENT AND PLAN: 1. Acute pancreatitis, acute on chronic. History of pancreatitis before but she also had dilatation of common bile duct of uncertain etiology, possibly she had a stone or recently passed a stone. Gastroenterology department is evaluating. She will have magnetic resonant cholangiopancreatography and I think that was performed yesterday, showed severe on acute pancreatitis, severely dilated common bile duct, reason unclear. Main pancreatic duct is normal. Mild left hydronephrosis, etiology unclear, may be reactive from pancreatitis. 2. Dehydration, resolved. 3. Tobacco use. Advised and counseled to quit smoking. 4. History of alcohol abuse. Stopped drinking 10 years ago. She drinks now occasionally. I think the last time she reports having an alcoholic drink was 2 months ago. 5. Asymptomatic bacteriuria. Been placed on antibiotics due to her pancreatitis, leukocytosis. Clinically, she seems to be improving. She is on Protonix 40 mg IV q.24 hours. She gets morphine p.r.n. pain 2 mg IV q.4 and she is on meropenem 1 g IV q.8. LABORATORY DATA: Sodium 139, potassium 3.7, chloride 105, BUN is 14, creatinine 0.6. CBC: White blood cell count 72219, hematocrit is 36, platelet count 167,000. cc: Juanjose Gauthier MD
--- NOTE | 2019-07-02 15:06 | GASTROENTEROLOGY PROGRESS NOTE ---
DATE: 07/02/2019 SUBJECTIVE: Ms. Trinidad is a 53-year-old, female, who was resting in bed. The patient still complains of abdominal pain. She has denied having any bowel movements today. The patient was on a clear liquid diet. We have advanced her diet to a low-fat diet. OBJECTIVE: Vital Signs: Temperature 98.8 degrees, pulse 93, respirations 16, blood pressure 131/77, oxygen saturation 95% on room air. The patient's weight is 130 pounds. BMI is 23.0 kg/m2. General: She is alert and oriented x3, lethargic, in no acute distress. HEENT: Pale conjunctivae. No icterus. PERRL. Neck: Supple. Lungs: Clear to auscultation. Cardiovascular: The patient is tachycardic. Abdomen: Soft, tender, nondistended. Active bowel sounds heard in all 4 quadrants. Extremities: No clubbing, no cyanosis, no edema. Pedal pulses 2+ present bilaterally. Neurologic: She is alert and oriented x3. IMAGING AND LABORATORY DATA: WBCs are 10.75, RBC is 3.74, hemoglobin is 11.4, hematocrit 36.2, platelet count is 167,000. Sodium 139, potassium 3.3, chloride 107, carbon dioxide 22, anion gap is 10, BUN is 9, creatinine 0.6, glucose is 67, calcium is 8.3. Total bilirubin is 0.40, AST 8, ALT 6, alkaline phosphatase is 80, albumin is 2.7. Amylase is 151, lipase is 56. MRCP done yesterday showed that she had severe acute on chronic pancreatitis, severely dilated common bile duct (reason is unclear), main pancreatic duct is normal, mild left hydronephrosis (etiology uncertain, may be reactive from the pancreatitis). IMPRESSION AND PLAN: Abdominal pain Nausea and vomiting Pancreatitis S/p gallbladder removal Dilated CBD UTI Leukocytosis History of alcoholism History of tobacco abuse PLAN: Ms. Trinidad is a 53-year-old, female, who recently had a cholecystectomy done, Gastroenterology is following her for pancreatitis. The patient's MRCP has shown that she has severe acute on chronic pancreatitis and severely dilated common bile duct. Pancreatic duct is normal. Mild left hydronephrosis. The patient is currently on IV fluids, normal saline at 200 mL/h. She is receiving PPIs daily. The patient is on antiemetic, Zofran, for her nausea and vomiting, and also receiving antibiotic, Merrem for her UTI. We have advanced the patient's diet to a low-fat diet, and we will continue to provide supportive care to the patient. This plan was discussed with Dr. Kitchen. Please call us for any further questions or concerns. Dictated by YADIRA Chow for Jonny Kitchen MD MTDD
[2019-07-02] MEDS: PROTONIX IV SCH (18:19)
[2019-07-02] MEDS: SODIUM CHLORIDE 0.9% INJ SCH (18:19)
[2019-07-03] MEDS: NS 1,000 ML IV SCH ×8 (00:09→23:10)
[2019-07-03] MEDS: MORPHINE IV PRN ×2 (00:17→15:34)
[2019-07-03] MEDS: MERREM 1 GM in NS 50 ML IV SCH ×3 (02:37→23:10)
--- NOTE | 2019-07-03 10:13 | PROGRESS NOTE ---
DATE: 07/03/2019 SUBJECTIVE: Ms Trinidad feels better. Her abdomen feels better and she ate a little bit of food, so she is hoping she can go home today. OBJECTIVE: Vital signs: Temperature is 98.4 degrees, pulse 75, respirations 16, blood pressure 122/76. HEENT: Pupils are equal and round. Lungs: Clear in all lung jung. Cardiovascular: Regular rhythm and rate without murmur or S3. Urine output: 4300 mL. ASSESSMENT AND PLAN: A 53-year-old female who recently had a cholecystectomy done. Gastroenterology was following her for pancreatitis. She had an MRCP that showed severe acute on chronic pancreatitis, severely dilated common bile duct. Pancreatic duct was normal. Mild left hydronephrosis. She is improving with IV fluids and she is on high-dose proton pump inhibitors. She has advanced her diet. She would like to try and go home tomorrow. We are treating for possible urinary tract infection and she was treated with meropenem. Her urine did grow out Citrobacter youngae. Blood cultures with no growth and hopefully we can let her go home this afternoon. cc: Juanjose Gauthier MD
--- NOTE | 2019-07-03 11:21 | GASTROENTEROLOGY PROGRESS NOTE ---
DATE: 07/03/2019 SUBJECTIVE: Ms. Trinidad is a 53-year-old female resting in bed. The patient's diet has been advanced to a low-fat diet, and she was able to tolerate her diet fairly well. She has denied any nausea or vomiting, and still has mild abdominal tenderness. Denied having any bowel movements today. OBJECTIVE: Vital Signs: Temperature 98.4 degrees, pulse 75, respirations 16, blood pressure 122/76, and oxygen saturation 97% on room air. Her weight is 130 pounds. BMI is 23.0 kg/m squared. General: She is alert and oriented x3 in no acute distress. HEENT: Pale conjunctivae. No icterus. PERRL. Neck: Supple. Lungs: Clear to auscultation. Cardiovascular: Regular rate and rhythm. Abdomen: Soft. Mildly tender. Active bowel sounds heard in all 4 quadrants. Extremities: No clubbing, no cyanosis, no edema. Pedal pulses 2+ present bilaterally. Neurologic: Alert and oriented x3. LABORATORY: Hematology is from 07/02. WBC is 10.75, RBC 3.74, hemoglobin 11.4, hematocrit is 36.2, and platelet count is 167,000. Sodium 139, potassium 3.3, chloride 107, carbon dioxide 22, anion gap 10, BUN 9, creatinine 0.6, glucose 67, calcium 8.3, total bilirubin is 0.40, AST 8, ALT 6, alkaline phosphatase 80, and albumin 2.7. IMPRESSION AND PLAN: Acute on chronic pancreatitis Dilated CBD UTI Leukocytosis History of alcoholism Tobacco abuse. PLAN: Ms. Trinidad is a 53-year-old female who recently had her gallbladder removed.. GI is following her for pancreatitis. She is currently on IV fluids normal saline at 200 mL/hour with antibiotics Merrem for her UTI. We will continue her with PPIs daily. The patient's diet has been advanced to low-fat diet. She is able to tolerate a diet well. We will continue to provide supportive care and follow the plan of care per PCP. This plan was discussed with Dr. Kitchen. Please call us for any further questions or concerns. Dictated by YADIRA Chow for Jonny Kitchen MD Physician Attestation I have seen and examined the patient. I have discussed and reviewed the note by Martha MAY and agree with findings and plan as documented. In brief, Ms. Trinidad is a 53 year old woman who presented with acute on chronic pancreatitis and UTI. She is tolerating PO without abdominal pain. Leukocytosis resolving. Patient can be discharged from [facility] with follow-up in 4-6 weeks MTDD
[2019-07-03] MEDS: SODIUM CHLORIDE 0.9% INJ SCH (17:20)
[2019-07-03] MEDS: PROTONIX IV SCH (17:20)
[2019-07-04] MEDS: MERREM 1 GM in NS 50 ML IV SCH (05:46)
[2019-07-04 07:19] VITALS: BP 139/80
--- NOTE | 2019-07-04 09:28 | DISCHARGE SUMMARY ---
ADMISSION DATE: 06/30/2019 DISCHARGE DATE: 07/04/2019 HOSPITAL COURSE: This is a 53-year-old who presented with abdominal pain, nausea and vomiting. This is a 53-year-old female with past medical history of alcohol abuse in the past. She stopped drinking 10 years ago, now occasionally she drinks about once a month she says. She says she drinks margaritas. She denied any other medical history, recently had a cholecystectomy done in the hospital on 05/02/2019. It looks like postoperative course was not complicated, but she had some purulent fluid in her abdomen. She had a difficult cholecystectomy. She was discharged without any problems. As per patient for the last 2 days before admission, she was having abdominal pain, epigastric pain radiating to the back; it felt like it was a band around the middle of her abdomen associated with nausea, vomiting, weakness. Last time she had a drink was 2 months ago by her report. She was examined in the emergency room. CT scan of the abdomen was performed, showed acute on chronic pancreatitis, dilatation of common bile duct of uncertain etiology. The possibility of distal common bile duct stone or recent passed stone could not be excluded. She also had some ascites. She also had some changes consistent with chronic pyelonephritis on the left, possibility of urinary tract infection, so she was admitted. The patient's white blood cell count was 17,600. Clinically, she looked a little dehydrated. Her amylase level was 1479, lipase was 1239, and her urinalysis was fairly unremarkable. Looking back, her urinalysis showed too numerous to count white blood cells and 4+ bacteria. So, she was treated for urinary tract infection as well. She had an MRCP done that showed severe acute on chronic pancreatitis, severely dilated common bile duct. Reason was unclear. Main pancreatic duct was normal. Mild left hydronephrosis, etiology uncertain. Dr. Marshall evaluated. She had a recent cholecystectomy and now with pancreatitis. MRCP showed severe acute on chronic pancreatitis, severely dilated common bile duct, main pancreatic duct was normal, mild left hydronephrosis, so we continued IV fluids and antibiotics. She was counseled to quit alcohol altogether. Counseled about tobacco sensation and she showed slow improvement. She improved clinically and advanced her diet and was tolerating regular diet, and so she wanted to go home. We will discharge her home. HOME MEDICINES: I am going to keep her on Protonix 40 mg p.o. daily. FOLLOWUP: She will follow up with her primary care physician. cc: Juanjose Gauthier MD
== END 2019-07-04 10:53 | disposition home or self-care (01) | DRG 439 ==
LOC: ED 12:48 → EDIPHOLD 18:07 → SUATTDRO 18:07 → 4N 20:26
PROVIDERS: ATTEND Emergency Medicine